=== PATIENT | female | born 1990 | race African-American/Black ===

== ENCOUNTER 2016-05-03 18:01 | Emergency (ER) | payer BC ==
[~2016-05-03] VITALS: Ht 154.9 cm; Wt 79.4 kg
[~2016-05-03 18:01] MED LIST: ALBU8.5H6 INH; MOME13HF2 IH
[2016-05-03 18:54] VITALS: BP 133/63
[2016-05-03] MEDS ORDERED: HYDR-971 PO (19:19)
[2016-05-03] MEDS ORDERED: AMOX500C PO (19:19)
--- NOTE | 2016-05-03 19:19 | PHYS DOC ---
Past Medical History Past Medical History: Asthma, Seizure Past Surgical History: , Other Additional Past Surgical Histo: Alcohol Use: None Drug Use: None Adult General Chief Complaint Chief Complaint: DENTAL PROBLEM HPI HPI Patient is a 26 year old female, who is approximately 9 weeks , with complaint of left lower jaw pain and swelling that began approximately 2 weeks ago. Patient states the pain actually began 2 weeks ago. She reports a swelling began 2 days ago. She reports she was on antibiotics approximately 2 months ago for a dental complaint. She has not followed up with a dentist since that period of time. Patient has no complaints for her current . She denies abdominal pain, pelvic pain, vaginal bleeding, dysuria or vaginal discharge. Review of Systems Review of Systems Constitutional: Denies fever or chills [] Eyes: Denies change in visual acuity, redness, or eye pain [] HENT: Denies nasal congestion or sore throat [] Respiratory: Denies cough or shortness of breath [] Cardiovascular: No additional information not addressed in HPI [] GI: Denies abdominal pain, nausea, vomiting, bloody stools or diarrhea [] : Denies dysuria or hematuria [] Musculoskeletal: Denies back pain or joint pain [] Integument: Denies rash or skin lesions [] Neurologic: Denies headache, focal weakness or sensory changes [] Endocrine: Denies polyuria or polydipsia [] Allergies Allergies Allergies Coded Allergies Type Severity Reaction Last Updated Verified diphenhydramine Allergy Unknown Rash 10/04/13 Yes Physical Exam Physical Exam Constitutional: Well developed, well nourished, no acute distress, non-toxic appearance. [] HENT: Normocephalic, atraumatic, bilateral external ears normal, oropharynx moist, no oral exudates, nose normal. There is no trismus. There is gingival swelling adjacent to the left mandibular second molar with indurated tissue. There is actively draining purulent material from the site. Eyes: PERRLA, EOMI, conjunctiva normal, no discharge. [] Neck: Normal range of motion, no tenderness, supple, no stridor. [] Cardiovascular:Heart rate regular rhythm, no murmur [] Lungs & Thorax: Bilateral breath sounds clear to auscultation [] Abdomen: Bowel sounds normal, soft, no tenderness, no masses, no pulsatile masses. [] Skin: Warm, dry, no erythema, no rash. [] Back: No tenderness, no CVA tenderness. [] Extremities: No tenderness, no cyanosis, no clubbing, ROM intact, no edema. [] Neurologic: Alert and oriented X 3, normal motor function, normal sensory function, no focal deficits noted. [] Psychologic: Affect normal, judgement normal, mood normal. [] Current Patient Data Vital Signs Vital Signs Date Time Temp Pulse Resp B/P Pulse Ox O2 Delivery O2 Flow Rate FiO2 05/03/16 18:54 99.3 103 16 96 Room Air 99.3 EKG EKG [] Radiology/Procedures Radiology/Procedures [] Course & Med Decision Making Course & Med Decision Making Pertinent Labs and Imaging studies reviewed. (See chart for details) [] Dragon Disclaimer Dragon Disclaimer This electronic medical record was generated, in whole or in part, using a voice recognition dictation system. Departure Departure Impression: Primary Impression: Periapical abscess Disposition: 01 HOME, SELF-CARE Condition: GOOD Referrals: NON,STAFF (PCP) Patient Instructions: Dental Abscess Additional Instructions: 1. Take the medications as prescribed. Apply warm compresses to the left lower jaw every 2 hours for 20-30 minutes at a time. 2. Use the dental resource sheet provided for assistance in finding definitive dental care. 3. Contact your bulldozer press operator if there are any concerns about your . Scripts Hydrocodone/Apap 5-325 ([place] 5-325 Tablet)1 Each Tablet1 Tab PO PRN Q6HRS PRN PAIN #15 TAB Ref 0 Prov:KAYKAY DURAN 05/03/16 Amoxicillin 500 Mg Capsule1 Cap PO TID #30 CAP Prov:KAYKAY DURAN 05/03/16 KAYKAY DURAN May 03, 2016 19:19
== END 2016-05-03 19:22 | disposition home or self-care (01) ==
LOC: ER 18:01
DX: O26.891 Other specified pregnancy related conditions, first trimester (principal); K04.7 Periapical abscess without sinus; O99.511 Diseases of the respiratory system complicating pregnancy, first trimester; J45.909 Unspecified asthma, uncomplicated; Z3A.09 9 weeks gestation of pregnancy; Z88.8 Allergy status to other drugs, medicaments and biological substances
CPT/HCPCS: 99283

== ENCOUNTER 2019-10-03 11:10 | Emergency (ER) | payer BC, MEDICAID, OTHER ==
[~2019-10-03] VITALS: Ht 152.4 cm; Wt 102.3 kg
[~2019-10-03 11:10] MED LIST changes: +AMOX500C PO; +HYDR-3164 PO
--- NOTE | 2019-10-03 11:30 | PHYS DOC ---
Past Medical History Past Medical History: Asthma, Seizure (MARTIN MASTERS UTILITY LOCATOR) Past Surgical History: , Other Additional Past Surgical Histo: (MARTIN MASTERS UTILITY LOCATOR) Smoking Status: Former Smoker Alcohol Use: None Drug Use: None (MARTIN MASTERS UTILITY LOCATOR) General Adult EDM: Chief Complaint: ABDOMINAL PAIN HPI: HPI: Patient is a 29 year old female who presents with low mid abdominal pain that does not radiate but at times she states that she will have low back pain is started last 2 days. She denies abnormal vaginal discharge or vaginal bleeding. She rates her pain a 9 out of 10. She states is a cramping pain. Her last menstrual period was June 25. She states she has no OB doctor because it is been hard to find one due to her insurance. She states that [facility] did a Pap smear and just tested for STDs but she cannot remember the date but she states it was not too long ago. She denies any concerns for sexually transmitted diseases and does not want to be treated prophylactically or tested today. Patient is G7, P5. Her history is asthma, and an . Patient denies nausea, vomiting, dysuria, hematuria, fever, cough, dizziness, headache, vision changes, numbness or tingling, LOC. (MARTIN MASTERS UTILITY LOCATOR) Review of Systems: Review of Systems: Constitutional: Denies fever or chills. [] Eyes: Denies change in visual acuity. [] HENT: Denies nasal congestion or sore throat. [] Respiratory: Denies cough or shortness of breath. [] Cardiovascular: Denies chest pain or edema. [] GI: Low mid abdominal pain, denies nausea, vomiting, bloody stools or diarrhea. [] : Denies dysuria. [] Musculoskeletal: Bilateral low back pain or denies joint pain. [] Integument: Denies rash. [] Neurologic: Denies headache, focal weakness or sensory changes. [] Endocrine: Denies polyuria or polydipsia. [] Lymphatic: Denies swollen glands. [] Psychiatric: Denies depression or anxiety. [] (MARTIN MASTERS UTILITY LOCATOR) Heart Score: Risk Factors: Risk Factors: DM, Current or recent (<one month) smoker, HTN, HLP, family h istory of CAD, obesity. Risk Scores: Score 0 - 3: 2.5% MACE over next 6 weeks - Discharge Home Score 4 - 6: 20.3% MACE over next 6 weeks - Admit for Clinical Observation Score 7 - 10: 72.7% MACE over next 6 weeks - Early Invasive Strategies (MARTIN MASTERS APRN) Current Medications: Current Medications Medications (Trade) Dose Ordered Sig/Jaquan Start Time Stop Time Status Last Admin Dose Admin Acetaminophen/ Hydrocodone Bitart (Lortab 5/325) 1 tab 1X ONCE 10/03/19 11:30 10/03/19 11:31 UNV Sodium Chloride 1,000 ml @ 1,000 mls/hr Q1H 10/03/19 11:23 10/03/19 12:22 UNV (MARTIN MASTERS APRN) Allergies: Allergies: Allergies Coded Allergies Type Severity Reaction Last Updated Verified diphenhydramine Allergy Unknown Rash 10/04/13 Yes (MARTIN MASTERS APRN) Physical Exam: PE: Constitutional: Well developed, well nourished, no acute distress, non-toxic appearance. [] HENT: Normocephalic, atraumatic, bilateral external ears normal, oropharynx moist, no oral exudates, nose normal. [] Eyes: PERRLA, EOMI, conjunctiva normal, no discharge. [] Neck: Normal range of motion, no tenderness, supple, no stridor. [] Cardiovascular:Heart rate regular rhythm, no murmur [] Lungs & Thorax: Bilateral breath sounds clear to auscultation [] Abdomen: Bowel sounds normal, soft, low mid tenderness, no masses, no pulsatile masses. [] Skin: Warm, dry, no erythema, no rash. [] Back: No tenderness, no CVA tenderness. [] Extremities: No tenderness, no cyanosis, no clubbing, ROM intact, no edema. [] Neurologic: Alert and oriented X 3, normal motor function, normal sensory function, no focal deficits noted. [] Psychologic: Affect normal, judgement normal, mood normal. [] (MARTIN MASTERS APRN) EKG: EKG: [] (MARTIN MASTERS APRN) Radiology/Procedures: Radiology/Procedures: [] Impression: [facility] [address] [place] [address] IMAGING REPORT Signed PATIENT: TARUN URIBE LACCOUNT: [id number] : 1990 LOCATION: ER AGE: 29 SEX: F EXAM STATUS: REG ER ORD. PHYSICIAN: MARTIN MASTERS APRN REASON: LOW MID ABDOMINAL PAIN, LMP 4/5 PROCEDURE: PELVIS COMPLETE PELVIS COMPLETE History: Low abdominal pain Comparison: None. Findings: Multiple transabdominal sonographic images of the pelvis are submitted. Uterus measured 9.5 x 4.6 x 7.4 cm. Endometrium measured 1.2 cm in thickness. Right ovary measured 2.2 x 2.2 x 2 cm with normal color flow and low resistance vascularity. Left ovary measured 2.2 x 2.7 x 2.2 cm with normal low resistance vascularity and color flow. No significant free fluid is demonstrated. Appendix could not be visualized. Impression: 1. No significant abnormality is demonstrated. Appendix could not be visualized. Electronically signed by: Shannan Brownlee MD (10/03/2019 12:01 PM) [id number] DICTATED and SIGNED BY: SHANNAN BROWNLEE MD DATE: 10/03/19 1201 (MARTIN MASTERS APRN) Course & Med Decision Making: Course & Med Decision Making Pertinent Labs and Imaging studies reviewed. (See chart for details) Abdomen soft and nontender. Alert and oriented. Ambulatory with a steady gait. Skin pink warm and dry. Afebrile. No CVA tenderness. No extremity swelling. UCG is negative. Patient states that just a couple weeks ago was tested for sexually transmitted diseases at and again states that they were negative and she does not need prophylactic treatment or testing again. She is refusing at this time. Her urinalysis does not show infection but does show some bacteria so I will go ahead and put her on Keflex. Ultrasound does not show or any abnormalities. She has no right-sided lower abdominal pain no fever. No rebound tenderness or tenderness to the right lower quadrant. [] (MARTIN MASTERS APRN) Dragon Disclaimer: Dragon Disclaimer: This electronic medical record was generated, in whole or in part, using a voice recognition dictation system. (MARTIN MASTERS APRN) Departure Departure Impression: Primary Impression: Abdominal pain Qualified Codes: R10.9 - Unspecified abdominal pain Disposition: HOME, SELF-CARE Condition: STABLE Referrals: KERVIN MORRIS M.D. (PCP) Patient Instructions: Abdominal Pain (Nonspecific) Additional Instructions: Follow-up with your primary care physician. Take medication as prescribed and with food. Scripts Cephalexin (KEFLEX) 500 Mg Capsule 1 CAP PO BID for 7 Days, #14 CAP 0 Refills Prov: MARTIN MASTERS APRN 10/03/19 Justicifation of Admission Dx: Justifications for Admission: Justification of Admission Dx: N/A (MARTIN MASTERS APRN) Attending Signature Attending Signature I have reviewed the PA/ENERGY CONSERVATION TECHNICIAN's note and plan of care. I was available for consultation as needed during the patient's visit in the emergency department. I agree with the clinical impression, plan, and disposition. (TEVIN RAMIREZ DO) MARTIN MASTERS APRN Oct 03, 2019 11:30 TEVIN RAMIREZ DO Oct 06, 2019 01:02
[2019-10-03 11:41] LABS: BASO # 0.1 x10^3/uL (0.0-0.2); BASO % 1 % (0-3); EOS # 0.1 x10^3/uL (0.0-0.7); EOS % 2 % (0-3); HEMATOCRIT 39.1 % (36.0-47.0); HEMOGLOBIN 13.4 g/dL (12.0-15.5); LYMPH # 2.2 x10^3/uL (1.0-4.8); LYMPH % 26 % (24-48); MEAN CORPUSCULAR HEMOGLOBIN 31 pg (25-35); MEAN CORPUSCULAR HGB CONC 34 g/dL (31-37); MEAN CORPUSCULAR VOLUME 91 fL (79-100); MONO # 0.7 x10^3/uL (0.0-1.1); MONO % 8 % (0-9); NEUT # 5.5 x10^3/uL (1.8-7.7); NEUT % 64 % (31-73); PLATELET COUNT 315 x10^3/uL (140-400); RED BLOOD COUNT 4.29 x10^6/uL (3.50-5.40); RED CELL DISTRIBUTION WIDTH 13.7 % (11.5-14.5); WHITE BLOOD COUNT 8.5 x10^3/uL (4.0-11.0)
[2019-10-03 11:42] LABS: BILIRUBIN,URINE NEGATIVE (NEG); CLARITY,URINE CLEAR; COLOR,URINE YELLOW; NITRITE,URINE NEGATIVE (NEG); PH,URINE 6.5 (<5.0-8.0); PROTEIN,URINE NEGATIVE (NEG-TRACE); UROBILINOGEN,URINE 0.2 mg/dL (0.2 mg/dL)
[2019-10-03] MEDS ORDERED: HYDROcodone/APAP 5/325MG 1 TAB TABLET PO ONE (11:45)
[2019-10-03 11:51] LABS: PROTHROMBIN TIME PATIENT 12.7 SEC (11.7-14.0)
[2019-10-03 11:58] LABS: CALCIUM 8.9 mg/dL (8.5-10.1); CREATININE 0.9 mg/dL (0.6-1.0); GFR 90.9; POTASSIUM 4.1 mmol/L (3.5-5.1)
[2019-10-03] MEDS ORDERED: IV NORMAL SALINE 1000ML BAG 1,000 ML IV SCH (12:00)
[2019-10-03 12:03] LABS: ALBUMIN 3.3 g/dL (3.4-5.0); ALBUMIN/GLOBULIN RATIO 0.8 (1.0-1.7); TOTAL BILIRUBIN 0.5 mg/dL (0.2-1.0); TOTAL PROTEIN 7.3 g/dL (6.4-8.2)
--- NOTE | 2019-10-03 12:04 | RAD ---
PELVIS COMPLETE History: Low abdominal pain Comparison: None. Findings: Multiple transabdominal sonographic images of the pelvis are submitted. Uterus measured 9.5 x 4.6 x 7.4 cm. Endometrium measured 1.2 cm in thickness. Right ovary measured 2.2 x 2.2 x 2 cm with normal color flow and low resistance vascularity. Left ovary measured 2.2 x 2.7 x 2.2 cm with normal low resistance vascularity and color flow. No significant free fluid is demonstrated. Appendix could not be visualized. Impression: 1. No significant abnormality is demonstrated. Appendix could not be visualized. Electronically signed by: Jimmy Pizano MD (10/03/2019 12:01 PM) [id number]
[2019-10-03 12:05] LABS: BACTERIA,URINE MODERATE /HPF (0-FEW); SQUAMOUS EPITHELIAL CELL,UR MOD /LPF
[2019-10-03] MEDS ORDERED: CEPH-264 PO (12:19)
[2019-10-03 12:30] VITALS: BP 134/72
== END 2019-10-03 12:47 | disposition home or self-care (01) ==
LOC: ER 11:10
DX: R10.30 Lower abdominal pain, unspecified (principal); M54.5 Low back pain; J45.909 Unspecified asthma, uncomplicated; Z87.891 Personal history of nicotine dependence; Z88.5 Allergy status to narcotic agent
CPT/HCPCS: 36415; 76856; 80053; 81001; 81025; 84702; 85025; 85610; 86850; 86900; 86901; 87086; 99284; J7030